=== PATIENT | female | born 1965 | race Caucasian/White ===

== ENCOUNTER 2017-11-04 10:20 | Emergency (ER) | payer OTHER ==
[2017-11-04 10:26] VITALS: BP 118/74; PULSE 70; TEMP 97.9; BMI 22.6
--- NOTE | 2017-11-04 11:42 | PDOC ---
History of Present Illness - General Chief Complaint: Laceration Stated Complaint: INJURY - History of Present Illness Initial Comments: 2-year-old female without comorbidities presents for evaluation of the left second finger laceration while using a knife at home cutting vegetables. She is up-to-date on tetanus bleeding was controlled with ice and pressure she has no other associated symptoms. 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) CVA: No COPD: No CHF: No Dementia: No Diabetes: No GI Disorders: No Disorders: No HTN: No Hypercholesterolemia: No Liver Disease: No Seizures: No Thyroid Disease: No - Surgical History Abdominal Surgery: Yes (GASTRIC BYPASS) Appendectomy: Yes Cardiac Surgery: No Cholecystectomy: No Lung Surgery: No Neurologic Surgery: No Orthopedic Surgery: No - Suicide/Smoking/Psychosocial Hx Smoking Status: No Smoking History: Never smoked Number of Cigarettes Smoked Daily: 0 Hx Alcohol Use: No Drug/Substance Use Hx: No Substance Use Type: None Hx Substance Use Treatment: No Review of Systems - Review of Systems Musculoskeletal: Yes: See HPI All Other Systems: Reviewed and Negative *Physical Exam - Vital Signs Last Vital Signs Temp Pulse Resp BP Pulse Ox 97.9 F 70 19 118/74 98 11/04/17 10:21 11/04/17 10:21 11/04/17 10:21 11/04/17 10:21 11/04/17 10:21 - Physical Exam Comments: There is a V shaped laceration extending radial to ulnar with the apex proximally pointing towards the PIPJ of the left second finger. FDS and FDP are preserved and work independently there are no gross sensorimotor deficits. 11/04/17 11:38 Medical Decision Making - Medical Decision Making Aseptically a digital block was introduced to the left second finger the wound was thoroughly irrigated explored to its base in a bloodless field there was no foreign body identified. The edges were approximated using 5-0 nylon. A dry sterile dressing was placed this was tolerated well and done without complication 6 simple interrupted sutures were placed 11/04/17 11:39 *DC/Admit/Observation/Transfer Diagnosis at time of Disposition: Laceration - Discharge Dispostion Disposition: HOME Condition at time of disposition: Stable Decision to Admit order: No - Referrals Referrals: Too Mendoza [Primary Care Provider] - Horacio Lawson MD [Staff Physician] - - Patient Instructions Printed Discharge Instructions: DI for Laceration Repair Additional Instructions: Return to the emergency room should use experience redness swelling drainage or increased pain in the area. He may take the dressing off in 48 hours and wash her hand with soap and water. Leave it open to air only cover it if it draining. Return to the emergency room in 10 days for suture removal. He may follow-up with hand surgery if you develop any complications or if you want subspecialty evaluation - Post Discharge Activity
== END 2017-11-04 11:51 | disposition home or self-care (01) ==
LOC: JERFT 10:20
PROC: 0HQGXZZ Repair Left Hand Skin, External Approach (ICD-10-PCS; principal; 2017-11-04)
DX: S61.211A Laceration without foreign body of left index finger without damage to nail, initial encounter (principal); W26.0XXA Contact with knife, initial encounter; Y93.G1 Activity, food preparation and clean up; Y92.030 Kitchen in apartment as the place of occurrence of the external cause; Y99.8 Other external cause status
CPT/HCPCS: 12001; 99281-25

== ENCOUNTER 2019-02-09 22:29 | Emergency (ER) | payer OTHER ==
[2019-02-09 22:37] VITALS: BP 142/78; PULSE 74; TEMP 98.1; BMI 27.6
--- NOTE | 2019-02-09 23:53 | PDOC ---
History of Present Illness - General Chief Complaint: Pain Stated Complaint: FOOT PAIN Time Seen by Provider: 02/09/19 22:57 History Source: Patient Exam Limitations: No Limitations - History of Present Illness Initial Comments: 02/09/19 23:58 HISTORY OF PRESENT ILLNESS: This a 53-year-old woman who presents emergency department for evaluation of atraumatic right foot pain over the past 4 days. Patient is unable to identify any inciting, aggravating or alleviating factors. Reports the pain is at the second toe of the right foot in the interdigital space extending up the dorsum of her foot. She also reports feeling a pressure to the right great toenail. No recent travel or sick contacts. PAST MEDICAL HISTORY: Denies past medical history SURGICAL HISTORY: Denies ALLERGIES: latex REVIEW OF SYSTEMS General/Constitutional: Denies fever or chills. Denies weakness, weight change. HEENT: Denies change in vision. Denies ear pain or discharge. Denies sore throat. Cardiovascular: Denies chest pain or shortness of breath. Respiratory: Denies cough, wheezing, or hemoptysis. Gastrointestinal: Denies nausea, vomiting, diarrhea or constipation. Denies rectal bleeding. Genitourinary: Denies dysuria, frequency, or change in urination. Musculoskeletal: see HPI Skin and breasts: Denies rash or easy bruising. Neurologic: Denies headache, vertigo, loss of consciousness, or loss of sensation. Psychiatric: Denies depression or anxiety. Endocrine: Denies increased thirst. Denies abnormal weight change. Hematologic/Lymphatic: Denies anemia, easy bleeding, or history of blood clots. Allergic/Immunologic: Denies hives or skin allergy. Denies latex allergy. PHYSICAL EXAM General Appearance: Well-appearing, appropriately dressed. No apparent distress , no intoxication. Vascular Pulses: Dorsalis-Pedis (R): 2+, Dorsalis-Pedis (L): 2+ Musculoskeletal/Extremities: Mild tenderness present to the dorsum of the right second toe extending to the MCP. No tender upon palpation of the other toes. Capillary refill is less than 2 seconds. No erythema or warmth present. Full range of motion noted. No fluid collections or abscesses present on the cuticle margin small toes NVI. Integumentary: Appropriate color, dry, warm. 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) CVA: No COPD: No CHF: No Dementia: No Diabetes: No GI Disorders: No Disorders: No HTN: No Hypercholesterolemia: No Liver Disease: No Seizures: No Thyroid Disease: No - Surgical History Abdominal Surgery: Yes (GASTRIC BYPASS) Appendectomy: Yes Cardiac Surgery: No Cholecystectomy: No Lung Surgery: No Neurologic Surgery: No Orthopedic Surgery: No - Immunization History Immunization Up to Date: Yes - Psycho Social/Smoking Cessation Hx Smoking Status: No Smoking History: Never smoked Have you smoked in the past 12 months: No Number of Cigarettes Smoked Daily: 0 Hx Alcohol Use: No Drug/Substance Use Hx: No Substance Use Type: None Hx Substance Use Treatment: No *Physical Exam - Vital Signs Last Vital Signs Temp Pulse Resp BP Pulse Ox 98.1 F 74 18 142/78 98 02/09/19 22:34 02/09/19 22:34 02/09/19 22:34 02/09/19 22:34 02/09/19 22:34 ED Treatment Course - RADIOLOGY Radiology Studies Ordered: Category Date Time Status FOOT-RIGHT [RAD] Stat Radiology 02/09/19 23:06 Taken Medical Decision Making - Medical Decision Making 02/09/19 23:52 A/P: 53-year-old woman with atraumatic right foot pain worsening over the past 4 days No erythema or decreased range of motion noted. Skin temperature is normal. X-rays of right foot Patient is refusing pain medication at this time X-ray as read by me: No acute fractures or dislocations present. No bony erosion noted. Discharge patient home to follow-up with podiatry for continued evaluation of her foot pain. I discussed the physical exam findings, ancillary test results and final diagnoses with the patient. I answered all of the patient's questions. The patient was satisfied with the care received and felt comfortable with the discharge plan and treatment plan. The patient will call their primary care physician within 24 hours to arrange follow-up and will return to the Emergency Department with any new, persistent or worsening symptoms. Portions of this note have been documented using voice recognition software. As a result, errors may occur in the arcade game technician process. Effort has been made to correct all grammatical and arcade game technician error, but some may have been missed. Discharge - Discharge Information Problems reviewed: No Clinical Impression/Diagnosis: Right foot pain Condition: Fair Disposition: HOME - Admission No - Follow up/Referral Referrals: Yoli Avendano MD [Primary Care Provider] - Greg Jules MD [Staff Physician] - - Patient Discharge Instructions Additional Instructions: Your x-rays today showed no fractures. Take Tylenol or Motrin as needed for pain. You have been given a referral for parachute taper who is a specialist for feet. If symptoms do not improve in the next 3 days call to schedule an appointment for reevaluation. Return to the emergency department for any new or worsening symptoms. Thank you very much for choosing us to provide for emergent health care needs. - Post Discharge Activity
== END 2019-02-10 00:24 | disposition home or self-care (01) ==
LOC: JER 22:29
DX: M79.671 Pain in right foot (principal); I00 Rheumatic fever without heart involvement; Z98.84 Bariatric surgery status
CPT/HCPCS: 73630-TC-RT-FY; 99281-25